=== PATIENT | male | born 1985 | race American Indian/Alaskan Native ===

== ENCOUNTER 2016-09-28 12:54 | Emergency (ER) | payer SELFPAY ==
--- NOTE | 2016-09-28 16:50 | XRay Report ---
FINAL REPORT PROCEDURE: Chest. TECHNIQUE: Frontal and lateral views. HISTORY: Weakness. COMPARISON: No prior studies are available for comparison. FINDINGS: The heart and mediastinum appear normal. The lungs are clear and well expanded. There are no pleural effusions. The soft tissues and regional skeleton are unremarkable. IMPRESSION: Normal study.
--- NOTE | 2016-09-28 17:07 | Emergency Department Report ---
Entered by OLINDA URENA, acting as scribe for ANDREY PALMER PA. ED General Adult HPI - General Chief complaint: Pain General Stated complaint: BODY PAIN/HEAD SORES Time Seen by Provider: 09/28/16 14:34 Source: patient Mode of arrival: Ambulatory Limitations: No Limitations - History of Present Illness Initial comments: 31 year old male past medical history marijuana smoking presents to ED with mother, c/o chronic body pain and head sores for over 1 year . Patient states he feels pain all over his body for the past year. Patient states he took Aleve this morning with mild relief. Patient's mother reports she noticed weight lost in the patient the past year he been staying with her. Patient denies fever, chills, dysuria, nausea, vomiting, hematuria, and hematochezia. Patient's mother reports FHx on her side of DM, HTN, CAD but denies Cancer in her family. Patient uses marijuana daily. NKDA. Patient states he is primarily interested in pain medicine. Is unsure if he has actually had weight loss. Is awake alert and oriented 3 does not appear to be in acute distress, denies alcohol or any other drug use other than marijuana. Patient is verbally arguing with his mother regarding his medical state. Mother states that he has not followed up with a doctor in years. -: year(s) (1) Location: head Consistency: constant Worsens with: none Associated Symptoms: denies: chest pain, cough, diaphoresis, fever/chills, headaches, nausea/vomiting, shortness of breath, weakness - Related Data Allergies Allergy/AdvReac Type Severity Reaction Status Date / Time No Known Allergies Allergy Verified 09/28/16 13:05 ED Review of Systems Comment: All other systems reviewed and negative Constitutional: denies: chills, fever, weakness Eyes: denies: eye pain, eye discharge, vision change ENT: denies: ear pain, throat pain Respiratory: denies: cough, shortness of breath, wheezing Cardiovascular: denies: chest pain, palpitations Endocrine: no symptoms reported Gastrointestinal: denies: abdominal pain, nausea, diarrhea Genitourinary: denies: urgency, dysuria Musculoskeletal: denies: back pain, joint swelling, arthralgia Skin: denies: rash, lesions Neurological: denies: headache, weakness, paresthesias Psychiatric: denies: anxiety, depression Hematological/Lymphatic: denies: easy bleeding, easy bruising ED Past Medical Hx - Past Medical History Previous Medical History?: No - Surgical History Past Surgical History?: Yes Additional Surgical History: skin graft - Social History Smoking Status: Current Every Day Smoker Substance Use Type: Alcohol ED Physical Exam - General Limitations: No Limitations General appearance: alert, in no apparent distress - Head Head exam: Present: atraumatic, other (patient has cachectic wasted appearance and temples) - Eye Eye exam: Present: normal appearance, PERRL, EOMI - ENT ENT exam: Present: normal exam, mucous membranes moist - Neck Neck exam: Present: normal inspection, full ROM - Respiratory Respiratory exam: Present: normal lung sounds bilaterally. Absent: respiratory distress - Cardiovascular Cardiovascular Exam: Present: regular rate, normal rhythm. Absent: systolic murmur, diastolic murmur, rubs, gallop - GI/Abdominal GI/Abdominal exam: Present: soft, normal bowel sounds - Rectal Rectal exam: Present: deferred - Extremities Exam Extremities exam: Present: normal inspection - Back Exam Back exam: Present: normal inspection - Neurological Exam Neurological exam: Present: alert, oriented X3, CN II-XII intact, normal gait - Psychiatric Psychiatric exam: Present: agitated (patient slightly agitated states that) - Skin Skin exam: Present: warm, dry (dry flaky skin on scalp, possible seborrheic dermatosis), intact, normal color. Absent: rash ED Course Vital Signs 09/28/16 13:01 Temperature 97.5 F L Pulse Rate 111 H Respiratory 16 Rate Blood Pressure 104/60 O2 Sat by Pulse 100 Oximetry ED Medical Decision Making - Medical Decision Making A/P: Generalized pain, concern for weight loss 1-patient refused to have blood or urine done or any other diagnostics in the ER. I asked the patient why he was not interested in doing these and he was not able to elaborate why other than stating that he did not think it was necessary. Patient stated to me that he did not think anything was really well with him and just wanted pain medicine. I explained to the patient that without diagnostics or lab studies to guide my assessment of his medical issue that I would not prescribe him any narcotics or analgesics as I do not know the current state of his kidney or liver function. Patient stated that he was strictly interested in pain medicine and that he wanted to leave afterward. I told the patient that I could not do this because it is clinically and appropriate. I advised the patient to use [id number] analgesics if he wishes to do so. I also provided the patient with follow-up information for primary care services. Patient was awake alert and oriented and lucid during this conversation which occurred in the presence of his mother at bedside as well as nurse Jayna. I advised patient that without proper medical assessment he may have a serious underlying condition which can lead to disability and/or which was my clinical concern and why I wanted to investigate further. Patient stated he did not wish to have any further testing or medical treatment today and that he would follow-up in clinic's. I provided him with discharge information for these and the patient patient signed out AGAINST MEDICAL ADVICE. Nurse Jayna and patient's mother were witnesses. ED Disposition Clinical Impression: Left against medical advice, Generalized pain Disposition: DC-07 LEFT AGAINST MED ADVICE Is pt being admited?: No Does the pt Need Aspirin: No Condition: Stable Additional Instructions: Patient left AGAINST MEDICAL ADVICE, I advised him to follow-up as soon as possible with primary care or to return to the ER. Patient stated that he did not wish to stay in the ER or to have further diagnostics. This conversation was witnessed by his mother was at bedside. Referrals: [facility] [Provider Group] - 3-5 Days [facility] [Provider Group] - 3-5 Days [facility] [Provider Group] - 3-5 Days [facility] [place] [Outside] - 3-5 Days DARIUS ROBERTSON MD [Staff Physician] - 3-5 Days Forms: Accompanied Note This documentation as recorded by the ROMEL portillo PEARL,accurately reflects the service I personally performed and the decisions made by me,ANDREY PALMER PA.
== END 2016-09-28 15:45 | disposition left against medical advice (07) ==
LOC: ED 12:54
DX: M79.1 Myalgia (principal); F17.200 Nicotine dependence, unspecified, uncomplicated
CPT/HCPCS: 71020

== ENCOUNTER 2017-08-10 22:59 | Emergency (ER) | payer SELFPAY ==
[2017-08-10 23:34] VITALS: BP 121/68
[2017-08-11 02:48] LABS: Basophils % (Auto) 0.2 % (0.0-1.8); Eosinophils # (Auto) 0.1 K/mm3 (0.0-0.4); Eosinophils % (Auto) 0.5 % (0.0-4.3); Hematocrit 42.3 % (35.5-45.6); Hemoglobin 13.5 gm/dl (11.8-15.2); Lymphocytes # (Auto) 1.3 K/mm3 (1.2-5.4); Lymphocytes % (Auto) 8.3 % (13.4-35.0); Mean Corpuscular HGB Conc 32 % (32-34); Mean Corpuscular Volume 77 fl (84-94); Monocytes # (Auto) 0.7 K/mm3 (0.0-0.8); Monocytes % (Auto) 4.8 % (0.0-7.3); Platelet Count 403 K/mm3 (140-440); Red Blood Count 5.47 M/mm3 (3.65-5.03); Red Cell Distribution Width 17.8 % (13.2-15.2)
[2017-08-11 02:51] LABS: Mean Corpuscular Hemoglobin 25 pg (28-32)
--- NOTE | 2017-08-11 03:23 | Ultrasound Report ---
FINAL REPORT EXAM: US TESTICULAR DOPPLER COMP HISTORY: Testicular pain since this am TECHNIQUE: Routine sonographic evaluation was obtained of the scrotum with Doppler interrogation of the testicles. FINDINGS: Both testicles are normal in size, contour, blood flow and echotexture. The right testicle measures 3.6 cm x 1.7 cm x 2.6 cm. The left testicle measures 3.7 cm by 1.8 cm x 2.8 cm. Both epididymi are normal in size. There is a 6 mm epididymal cyst in the left epididymal head. There are bilateral small to moderate sized hydroceles. There is no evidence of a varicocele. IMPRESSION: No evidence of testicular neoplasia or torsion. Bilateral small to moderate sized hydroceles. 6 mm benign epididymal cyst in the left epididymal head
[2017-08-11 03:38] LABS: Alanine Aminotransferase 9 units/L (7-56); Albumin 4.1 g/dL (3.9-5); Calcium 10.1 mg/dL (8.4-10.2); Hemolysis Index 20; Lipase 17 units/L (13-60)
[2017-08-11 05:09] LABS: BUN/Creatinine Ratio 11; Blood Urea Nitrogen 8 mg/dL (9-20)
[2017-08-11 06:36] LABS: Bilirubin,Urine NEG (Negative); Blood,Urine NEG (Negative); Color,Urine Yellow (Yellow); Mucus,Urine 3+ /HPF; Urobilinogen,Urine < 2.0 mg/dL (<2.0)
== END 2017-08-11 03:30 | disposition left against medical advice (07) ==
LOC: ED 22:59
DX: N50.819 Testicular pain, unspecified (principal); R10.2 Pelvic and perineal pain; Z53.21 Procedure and treatment not carried out due to patient leaving prior to being seen by health care provider
CPT/HCPCS: 36415; 80053; 81001; 83690; 85025; 93975

== ENCOUNTER 2017-10-13 02:16 | Emergency (ER) | payer SELFPAY | END 2017-10-13 02:20 | disposition left against medical advice (07) | LOC: ED 02:16 | DX: M79.1 Myalgia (principal); Z53.21 Procedure and treatment not carried out due to patient leaving prior to being seen by health care provider ==

== ENCOUNTER 2018-10-03 18:49 | Emergency (ER) | payer SELFPAY ==
[2018-10-03 19:21] VITALS: BP 158/80
--- NOTE | 2018-10-03 19:26 | Emergency Department Report ---
Chief Complaint: Extremity Problem,Nontraumatic Stated Complaint: BILATERAL KNEE PAIN Time Seen by Provider: 10/03/18 19:22 - HPI History of Present Illness: 33 y/o male comes in for 3 year history of bilateral knee pain and rash in head. Pain reports that he was seen here before and had x rays of knees. - ROS Review of Systems: bilateral knee pain and hair loss. - Exam Vital Signs: Vital Signs 10/03/18 19:19 Temperature 97.3 F L Pulse Rate 107 H Respiratory 18 Rate Blood Pressure 158/80 [Left] O2 Sat by Pulse 100 Oximetry Physical Exam: Axo times 3 NAD. Ambulating without difficulties MSE screening note: Focused history and physical exam performed. Due to findings the following was ordered: Patient referred to outpatient PCP and orthopedics. Discuss taking OTC pain medication. Patient stable no indication for further ER evaluation on risk of loss of limb or . ED Disposition for MSE Clinical Impression: Chronic knee pain Qualifiers: Laterality: bilateral Qualified Code(s): M25.561 - Pain in right knee; M25.562 - Pain in left knee; G89.29 - Other chronic pain Disposition: DC-01 TO HOME OR SELFCARE Is pt being admited?: No Does the pt Need Aspirin: No Condition: Stable Instructions: Arthralgia (ED) Additional Instructions: Take Tylenol or Ibuprofen for pain. Follow up with a orthopedic provider and Primary Care provider. Referrals: CRISTINO MCCULLOUGH MD [Staff Physician] - 3-5 Days [facility] [Outside] - [facility] Days [facility] - 3[facility]5 Days [facility] [Outside] - 3-5 Days
== END 2018-10-03 19:35 | disposition home or self-care (01) ==
LOC: ED 18:49
DX: M25.561 Pain in right knee (principal); M25.562 Pain in left knee; G89.29 Other chronic pain
CPT/HCPCS: 99283